=== PATIENT | female | born 1990 | race Caucasian/White ===

== ENCOUNTER 2020-09-16 09:35 | Emergency (ER) | payer OTHER, SELFPAY ==
[2020-09-16 09:37] VITALS: BP 116/82; PULSE 91; RESP 18; TEMP 36.5; O2SAT 100
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
[2020-09-16 10:15] VITALS: BP 115/68; PULSE 60; RESP 12; O2SAT 99
== END 2020-09-16 10:20 | disposition home or self-care (01) ==
PROVIDERS: Emergency Provider Emergency Medicine
DX: T25.232A Burn of second degree of left toe(s) (nail), initial encounter (principal); X10.0XXA Contact with hot drinks, initial encounter; T31.0 Burns involving less than 10% of body surface
CPT/HCPCS: 16020; 99283